=== PATIENT | male | born 1980 | race American Indian/Alaskan Native ===

== ENCOUNTER 2018-07-12 04:13 | Emergency (ER) | payer MEDICAID, OTHER ==
[2018-07-12] MEDS ORDERED: NACL 0.9% 1000 ML 1,000 ML IV ONE (04:57)
[2018-07-12 05:34] LABS: Basophils % (Auto) 0.8 % (0.0-1.8); Eosinophils # (Auto) 0.1 K/mm3 (0.0-0.4); Eosinophils % (Auto) 2.2 % (0.0-4.3); Hematocrit 46.6 % (35.5-45.6); Hemoglobin 15.1 gm/dl (11.8-15.2); Lymphocytes # (Auto) 0.9 K/mm3 (1.2-5.4); Lymphocytes % (Auto) 24.5 % (13.4-35.0); Mean Corpuscular HGB Conc 32 % (32-34); Mean Corpuscular Volume 84 fl (84-94); Monocytes # (Auto) 0.4 K/mm3 (0.0-0.8); Monocytes % (Auto) 10.3 % (0.0-7.3); Platelet Count 275 K/mm3 (140-440); Red Blood Count 5.53 M/mm3 (3.65-5.03); Red Cell Distribution Width 16.8 % (13.2-15.2)
[2018-07-12 05:45] LABS: Alanine Aminotransferase 15 units/L (7-56); Albumin 4.1 g/dL (3.9-5); BUN/Creatinine Ratio 12; Blood Urea Nitrogen 12 mg/dL (9-20); Calcium 9.2 mg/dL (8.4-10.2); Hemolysis Index 13
[2018-07-12 05:55] LABS: Bilirubin,Urine NEG (Negative); Blood,Urine NEG (Negative); Color,Urine Yellow (Yellow); Protein,Urine <15 mg/dL mg/dL (Negative); Urobilinogen,Urine < 2.0 mg/dL (<2.0)
--- NOTE | 2018-07-12 06:51 | Emergency Department Report ---
ED Abdominal Pain HPI - General Chief Complaint: Abdominal Pain Stated Complaint: ABD PAIN Time Seen by Provider: 07/12/18 06:50 Source: patient, EMS Mode of arrival: Ambulatory Limitations: No Limitations - History of Present Illness Initial Comments: 37-year-old male with Crohn's disease. He admits that he hasn't seen a supervisory examiner for over a year. He has been previously on Remicade but obviously now noncompliant. He states that he thinks he has an infection under his colostomy and. However he hasn't changed his back for quite some time and he's run out of bags. He has had no fever or chills. He doesn't report any bloody output from the colostomy. He does not complain of abdominal pain. Per this hospitalization: Hospitalization Condition: Stable Hospital course: 35 YO Male admitted for Crohns Disease Flare and Abdominal pain secondary to medication noncompliance. Pt teated with supportive care and steroid therapy. GI and Surgery services consulted. PT deemed not a surgical candidate. GI consulted. Pt convalesced well during hospital course. Pt tolerating diet and back to usual state of health. Pt counseled regarding medication noncompliance. Pt evaluated prior to discharge but no significant new physical exam findings. Pt discharged home and instructed to F/U Pcp 1wk, and GI prn. 35 minutes dedicated to patient discharge and education. Disposition: DISCHARGED TO HOME OR SELFCARE - Discharge Diagnoses (1) Abdominal pain Status: Acute (2) Crohn's colitis Status: Acute MD Complaint: other -: month(s) Severity: mild Quality: other Consistency: constant Improves With: nothing Worsens With: nothing Context: other (medical noncompliance) Associated Symptoms: denies other symptoms - Related Data Home Medications Medication Instructions Recorded Confirmed Last Taken Omeprazole [PriLOSEC] 20 mg PO QDAY 03/18/14 07/20/15 03/16/14 Iron 0 mg PO QDAY 07/20/15 07/20/15 Unknown Multivit-Min/Iron Fum/Folic AC 0 mg PO QDAY 07/20/15 07/20/15 Unknown [Cddtj-Jlatsij-Sxvkccaq Tablet] Previous Rx's Medication Instructions Recorded Last Taken Type predniSONE [Deltasone] 40 mg PO QDAY #14 tab 07/22/15 Unknown Rx metroNIDAZOLE [Flagyl] 500 mg PO Q8HR #21 tablet 10/27/15 Unknown Rx predniSONE [Deltasone] 10 mg PO DAILY #42 tablet 10/27/15 Unknown Rx Allergies Allergy/AdvReac Type Severity Reaction Status Date / Time peanut Allergy Hives Verified 03/23/14 14:59 novacaine Allergy Anaphylaxis Uncoded 03/18/14 02:46 raisins Allergy Hives Uncoded 03/23/14 14:59 ED Review of Systems ROS: Stated complaint: ABD PAIN Other details as noted in HPI Constitutional: denies: chills, fever Eyes: denies: eye pain, eye discharge, vision change ENT: denies: ear pain, throat pain Respiratory: denies: cough, shortness of breath, wheezing Cardiovascular: denies: chest pain, palpitations Endocrine: no symptoms reported Gastrointestinal: as per HPI, other. denies: abdominal pain, nausea, diarrhea Genitourinary: denies: urgency, dysuria Musculoskeletal: denies: back pain, joint swelling, arthralgia Skin: denies: rash, lesions Neurological: denies: headache, weakness, paresthesias Psychiatric: denies: anxiety, depression Hematological/Lymphatic: denies: easy bleeding, easy bruising ED Past Medical Hx - Past Medical History Previous Medical History?: Yes Hx Hypertension: No Hx Heart Attack/AMI: No Hx Congestive Heart Failure: No Hx Diabetes: No Hx Deep Vein Thrombosis: No Hx Sickle Cell Disease: No Hx Psychiatric Treatment: Yes ([facility]) Hx Asthma: No Hx COPD: No Hx HIV: No Additional medical history: crohn's. colostomy- reversed. 2018 currently has a right sided Colostomy - Surgical History Past Surgical History?: Yes Hx Coronary Stent: No Hx Open Heart Surgery: No Hx Pacemaker: No Hx Internal Defibrillator: No Hx Cholecystectomy: No Hx Appendectomy: No Hx Breast Surgery: No Additional Surgical History: colostomy - Social History Smoking Status: Current Some Day Smoker - Medications Home Medications: Home Medications Medication Instructions Recorded Confirmed Last Taken Type Omeprazole [PriLOSEC] 20 mg PO QDAY 03/18/14 07/20/15 03/16/14 History Iron 0 mg PO QDAY 07/20/15 07/20/15 Unknown History Multivit-Min/Iron Fum/Folic AC 0 mg PO QDAY 07/20/15 07/20/15 Unknown History [Aacno-Ntfnjea-Rgfrsldp Tablet] predniSONE [Deltasone] 40 mg PO QDAY #14 tab 07/22/15 Unknown Rx metroNIDAZOLE [Flagyl] 500 mg PO Q8HR #21 tablet 10/27/15 Unknown Rx predniSONE [Deltasone] 10 mg PO DAILY #42 tablet 10/27/15 Unknown Rx ED Physical Exam - General Limitations: No Limitations General appearance: alert, in no apparent distress - Head Head exam: Present: atraumatic, normocephalic - Eye Eye exam: Present: normal appearance - ENT ENT exam: Present: mucous membranes moist - Neck Neck exam: Present: normal inspection - Respiratory Respiratory exam: Present: normal lung sounds bilaterally. Absent: respiratory distress - Cardiovascular Cardiovascular Exam: Present: regular rate, normal rhythm. Absent: systolic murmur, diastolic murmur, rubs, gallop - GI/Abdominal GI/Abdominal exam: Present: soft, normal bowel sounds, other (colostomy bag was quite old. There was some erythema under the adhesive dressing. However there was no abscess or fistula.). Absent: distended, tenderness, guarding, rebound, organomegaly, mass, bruit, pulsatile mass - Rectal Rectal exam: Present: deferred - Extremities Exam Extremities exam: Present: normal inspection - Back Exam Back exam: Present: normal inspection - Neurological Exam Neurological exam: Present: alert, oriented X3, CN II-XII intact. Absent: motor sensory deficit - Psychiatric Psychiatric exam: Present: normal affect, normal mood - Skin Skin exam: Present: warm, dry, intact, normal color. Absent: rash ED Course Vital Signs 07/12/18 07/12/18 07/12/18 04:17 04:54 06:23 Temperature 98.4 F 98.4 F Pulse Rate 68 68 Respiratory 18 18 18 Rate Blood Pressure 123/76 123/76 O2 Sat by Pulse 99 99 99 Oximetry 07/12/18 07/12/18 06:46 07:16 Temperature Pulse Rate 69 Respiratory 16 17 Rate Blood Pressure 110/71 118/65 O2 Sat by Pulse 100 98 Oximetry - Reevaluation(s) Reevaluation #2: Patient's white blood cell count was slightly low. She is not uncommon with Crohn's patient's. He has abdominal neutrophils. His colostomy bag was changed. I do not see any indications for admission at this time. 07/12/18 08:09 ED Medical Decision Making - Lab Data Result diagrams: 07/12/18 05:08 07/12/18 05:08 Laboratory Results - last 24 hr 07/12/18 07/12/18 07/12/18 05:08 05:08 05:28 WBC 3.8 L RBC 5.53 H Hgb 15.1 Hct 46.6 H MCV 84 MCH 27 L MCHC 32 RDW 16.8 H Plt Count 275 Lymph % (Auto) 24.5 Schleicher % (Auto) 10.3 H Eos % (Auto) 2.2 Baso % (Auto) 0.8 Lymph # 0.9 L Schleicher # 0.4 Eos # 0.1 Baso # 0.0 Seg Neutrophils % 62.2 Seg Neutrophils # 2.4 Sodium 137 Potassium 3.8 Chloride 102.0 Carbon Dioxide 22 Anion Gap 17 BUN 12 Creatinine 1.0 Estimated GFR > 60 BUN/Creatinine Ratio 12 Glucose 69 L Calcium 9.2 Total Bilirubin 0.30 AST 25 ALT 15 Alkaline Phosphatase 131 H Total Protein 7.7 Albumin 4.1 Albumin/Globulin Ratio 1.1 Lipase 22 Urine Color Yellow Urine Turbidity Clear Urine pH 5.0 Ur Specific Sarita 1.021 Urine Protein <15 mg/dl Urine Glucose (UA) Neg Urine Ketones Tr Urine Blood Neg Urine Nitrite Neg Urine Bilirubin Neg Urine Urobilinogen < 2.0 Ur Leukocyte Esterase Neg Urine WBC (Auto) 1.0 Urine RBC (Auto) 1.0 Critical care attestation.: If time is entered above; I have spent that time in minutes in the direct care of this critically ill patient, excluding procedure time. ED Disposition Clinical Impression: Medical non-compliance Crohns disease Qualifiers: Gastrointestinal tract location: unspecified location Digestive disease complication type: without complication Qualified Code(s): K50.90 - Crohn's disease, unspecified, without complications Disposition: DC-01 TO HOME OR SELFCARE Is pt being admited?: No Does the pt Need Aspirin: No Condition: Stable Instructions: Crohn Disease (ED), Colostomy Care (ED) Additional Instructions: It is important that you follow-up on your disease. I have given information about the local GI specialty clinic and the medical primary care clinic. Return to the emergency department any acute change or problems. Referrals: SHANIQUE GONCALVES MD [Primary Care Provider] - 3-5 Days [facility] [Provider Group] - 3-5 Days [facility] [Provider Group] - 3-5 Days Time of Disposition: 08:10
[2018-07-12 15:07] VITALS: BP 118/65
== END 2018-07-12 08:32 | disposition home or self-care (01) ==
LOC: ED 04:13
DX: K50.90 Crohn's disease, unspecified, without complications (principal); F17.200 Nicotine dependence, unspecified, uncomplicated; Z88.0 Allergy status to penicillin; Z93.3 Colostomy status; Z88.1 Allergy status to other antibiotic agents
CPT/HCPCS: 36415; 80053; 81001; 83690; 85025; 99283

== ENCOUNTER 2018-07-26 17:56 | Emergency (ER) | payer SELFPAY | END 2018-07-26 18:00 | disposition left against medical advice (07) | LOC: ED 17:56 ==

== ENCOUNTER 2018-07-27 04:58 | Emergency (ER) | payer SELFPAY ==
[2018-07-27 05:17] VITALS: BP 146/87
--- NOTE | 2018-07-27 07:56 | Emergency Department Report ---
HPI - General Chief Complaint: Extremity Injury, Lower Time Seen by Provider: 07/27/18 07:24 - HPI HPI: This is a 37-year-old homeless male who presents to ED complaining of bilateral foot pain status post long period of walk-in and getting green and shoes. Patient states he tried to consider fpc but was unable to. Patient presents today complaining of bilateral aching throbbing pain. He denies injury falls trauma to the foot. ED Past Medical Hx - Past Medical History Hx Hypertension: No Hx Heart Attack/AMI: No Hx Congestive Heart Failure: No Hx Diabetes: No Hx Deep Vein Thrombosis: No Hx Sickle Cell Disease: No Hx Psychiatric Treatment: Yes ([facility]) Hx Asthma: No Hx COPD: No Hx HIV: No Additional medical history: crohn's. colostomy- reversed - Surgical History Hx Coronary Stent: No Hx Open Heart Surgery: No Hx Pacemaker: No Hx Internal Defibrillator: No Hx Cholecystectomy: No Hx Appendectomy: No Hx Breast Surgery: No Additional Surgical History: colostomy - Social History Smoking Status: Never Smoker Substance Use Type: None - Medications Home Medications: Home Medications Medication Instructions Recorded Confirmed Last Taken Type Omeprazole [PriLOSEC] 20 mg PO QDAY 03/18/14 07/20/15 03/16/14 History Iron 0 mg PO QDAY 07/20/15 07/20/15 Unknown History Multivit-Min/Iron Fum/Folic AC 0 mg PO QDAY 07/20/15 07/20/15 Unknown History [Gmoup-Ykkwyzq-Jsjmtdnw Tablet] predniSONE [Deltasone] 40 mg PO QDAY #14 tab 07/22/15 Unknown Rx metroNIDAZOLE [Flagyl] 500 mg PO Q8HR #21 tablet 10/27/15 Unknown Rx predniSONE [Deltasone] 10 mg PO DAILY #42 tablet 10/27/15 Unknown Rx Ibuprofen [Motrin] 600 mg PO Q8H #20 tablet 07/27/18 Unknown Rx ED Review of Systems ROS: Stated complaint: FOOT BLISTERS Other details as noted in HPI Comment: All other systems reviewed and negative Physical Exam - Physical Exam Vital Signs: Vital Signs 07/27/18 07/27/18 05:11 05:57 Temperature 97.5 F L 97.5 F L Pulse Rate 54 L 54 L Respiratory 16 16 Rate Blood Pressure 146/87 146/87 O2 Sat by Pulse 100 100 Oximetry Physical Exam: GENERAL: Alert and oriented x3, no apparent distress, Normal Gait, atraumatic. HEAD: Head is normocephalic and a-traumatic. EXTREMITIES/MUSCULOSKELETAL: No cyanosis, clubbing, rash, lesions or edema. Full ROM bilaterally. Pedal pulses present. No ecchymosis, no dislocation or deformity seen at the foot. Nontender to palpation, NEUROLOGIC: The patient is cooperative with no focal neurologic deficits. SKIN: Warm and dry, No lesions, No ulceration or induration present. ED Course Vital Signs 07/27/18 07/27/18 05:11 05:57 Temperature 97.5 F L 97.5 F L Pulse Rate 54 L 54 L Respiratory 16 16 Rate Blood Pressure 146/87 146/87 O2 Sat by Pulse 100 100 Oximetry ED Medical Decision Making - Medical Decision Making [id number] with bilateral foot strain/arthralgia Vital signs are normal patient is in no acute distress Discussed with patient follow-up with primary care physician. field worker contacted regarding patient. field worker contacted to find placement for patient. Discussed the patient and take medications as prescribed. Patient has no neurological deficit. Patient is alert and oriented 3 and understands all instructions given. Discussed drowsiness effect of Flexeril makes her drowsy and not to operate machinery while taking flexeril Critical care attestation.: If time is entered above; I have spent that time in minutes in the direct care of this critically ill patient, excluding procedure time. ED Disposition Clinical Impression: Arthralgia of foot Disposition: DC-01 TO HOME OR SELFCARE Is pt being admited?: No Does the pt Need Aspirin: No Condition: Stable Instructions: Muscle Strain (ED), Arthralgia (ED), Heat Pack Application (ED) Additional Instructions: Make sure to follow up with the primary care physician as discussed. Take all your medications as you've been prescribed. If you have any worsening symptoms or develop new symptoms please return to ED immediately. Prescriptions: Ibuprofen [Motrin] 600 mg PO Q8H #20 tablet Referrals: STEPHANIE DEVI MD [Primary Care Provider] - 3-5 Days
== END 2018-07-27 09:17 | disposition home or self-care (01) ==
LOC: ED 04:58
DX: M79.671 Pain in right foot (principal); M79.672 Pain in left foot; K50.90 Crohn's disease, unspecified, without complications; Z91.010 Allergy to peanuts; Z59.0 Homelessness; Z93.3 Colostomy status
CPT/HCPCS: 99283

== ENCOUNTER 2019-12-26 20:13 | Emergency (ER) | payer SELFPAY | END 2019-12-26 20:32 | disposition left against medical advice (07) | LOC: ED 20:13 | DX: Z53.21 Procedure and treatment not carried out due to patient leaving prior to being seen by health care provider (principal) ==